=== PATIENT | female | born 2000 ===

== ENCOUNTER 2023-04-02 03:50 | Outpatient (CLI) ==
[~2023-04-02] VITALS: Ht 160 cm; Wt 80.6 kg
[2023-04-02 04:06] VITALS: BP 130/70; O2SAT 98
[2023-04-02] MEDS ORDERED: PRENTAB9 PO (04:08)
[2023-04-02] MEDS ORDERED: HOME MED LIST COMPLETE! XX SCH (04:10)
[2023-04-02 05:49] VITALS: BP 127/58
== END 2023-04-02 06:10 | disposition home or self-care (01) ==
LOC: M LDO 03:50
PROVIDERS: ATTEND Obstetrics & Gynecology
DX: O36.8130 Decreased fetal movements, third trimester, not applicable or unspecified (principal); Z3A.32 32 weeks gestation of pregnancy
CPT/HCPCS: 59025; G0463